=== PATIENT | female | born 1990 | race Caucasian/White ===

== ENCOUNTER 2017-11-15 08:45 | Day surgery (SDC) | payer OTHER ==
[~2017-11-15] VITALS: Ht 160 cm; Wt 57.1 kg
[~2017-11-15 08:45] MED LIST: NOHOMEMEDS
[2017-11-15 09:22] VITALS: BP 114/79
[2017-11-15 15:05] VITALS: BP 109/67
[2017-11-15 15:46] VITALS: BP 112/61
== END 2017-11-15 15:55 | disposition home or self-care (01) ==
LOC: SDC 08:45
PROC: 0UBC8ZX Excision of Cervix, Via Natural or Artificial Opening Endoscopic, Diagnostic (ICD-10-PCS; principal; 2017-11-15)
DX: D06.9 Carcinoma in situ of cervix, unspecified (principal)
CPT/HCPCS: 88307; 88341 TC; 88342 TC; J0131; J1100; J1885; J2250; J2405; J3010